=== PATIENT | male | born 1965 | race Caucasian/White ===

== ENCOUNTER 2024-08-17 06:51 | Day surgery (SDC) | payer BC ==
[~2024-08-17 06:51] MED LIST: Sodium Chloride 0.9% 10 ML Syringe FLUSH PRN; Sodium Chloride 0.9% 10 ML Syringe FLUSH SCH
[2024-08-17] MEDS: Lactated Ringers 1,000 ML IV SCH (07:05)
[2024-08-17] MEDS ORDERED: Midazolam 1 MG/ML 2 ML SDV ONE (08:07)
[2024-08-17] MEDS ORDERED: Propofol 200 MG/20 ML SDV ONE ×4 (08:07→08:49)
== END 2024-08-17 09:34 | disposition home or self-care (01) ==
LOC: JD.SDS 06:51
PROVIDERS: ATTEND Surgery
DX: Z12.11 Encounter for screening for malignant neoplasm of colon (principal); D12.2 Benign neoplasm of ascending colon; D12.4 Benign neoplasm of descending colon; D12.5 Benign neoplasm of sigmoid colon; K21.9 Gastro-esophageal reflux disease without esophagitis; K29.50 Unspecified chronic gastritis without bleeding; K29.80 Duodenitis without bleeding; K44.9 Diaphragmatic hernia without obstruction or gangrene; I10 Essential (primary) hypertension; E78.00 Pure hypercholesterolemia, unspecified; Z87.891 Personal history of nicotine dependence; Z79.899 Other long term (current) drug therapy
CPT/HCPCS: 43239; 45380; 45385; J2250; J2704; J7120; 00813